=== PATIENT | male | born 1950 | race Caucasian/White ===

== ENCOUNTER → 2017-11-02 | Outpatient (CLI) | payer MEDICARE ==
--- NOTE | 2017-11-02 14:35 | CT ---
EXAMINATION TYPE: CT facial bones wo con DATE OF EXAM: 11/02/2017 COMPARISON: NONE HISTORY: Chronic sinusitis Per order. Headache and facial pain per patient. CT DLP: 587.5 mGycm. Automated Exposure Control for Dose Reduction was Utilized. TECHNIQUE: CT scan of the facial bones are performed without contrast. FINDINGS: There is mild mucosal thickening with dependent air-fluid level in the left frontal sinus. There is mild mucosal thickening inferiorly in the right frontal sinus. There is moderate mucosal thickening and patchy opacification bilateral ethmoid sinuses. There is small air-fluid level in the left sphenoid sinus. There is 1.4 x 1.0 cm mucous retention cys t or polyp also felt present in the left sphenoid sinus axial image 20. There is near complete opacif ication of right sphenoid sinus. There is fairly moderate mucosal thickening in the right maxillary sinus. There is moderate mucosal t hickening also seen in smaller caliber left maxillary sinus which is dependent air-fluid level. The ostiomeatal complex is blocked bilaterally by soft tissue density. Nasal septum is deviated to left of midline. The globes are intact bilaterally. Visualized portion of brain parenchyma shows age-related cerebral atrophy. Visualized portion of mastoid air cells shows no suspicious opacification there are asymmetr ic nondeformed sinuses inferiorly on the left noted. There is vascular desiccation distal internal ca rotid arteries bilaterally incidentally noted. IMPRESSION: Acute on chronic paranasal pansinusitis as detailed above.
== END | disposition home or self-care (01) ==
LOC: RADCTMAIN 12:50
PROVIDERS: ATTEND Internal Medicine Geriatric Medicine
DX: J01.40 Acute pansinusitis, unspecified (principal); J32.8 Other chronic sinusitis
CPT/HCPCS: 70486

== ENCOUNTER → 2018-02-09 | Outpatient (CLI) | payer MEDICARE | END | disposition home or self-care (01) | LOC: LABWHC1 10:38 | PROVIDERS: ATTEND Otolaryngology | DX: Z01.812 Encounter for preprocedural laboratory examination (principal); R22.1 Localized swelling, mass and lump, neck | CPT/HCPCS: 36415; 82565; 84520 ==